=== PATIENT | male | born 1950 | race Caucasian/White ===

== ENCOUNTER 2018-09-01 18:14 | Inpatient (IN) | payer MEDICAID ==
[~2018-09-01] VITALS: Ht 170.2 cm; Wt 91.6 kg
[2018-09-01] MEDS ORDERED: ONDANSETRON HCL 4MG/2ML INJ IV STA (18:43)
[2018-09-01] MEDS ORDERED: SODIUM CHLORIDE 0.9% 1,000 ML IV ONE (18:43)
[2018-09-01] MEDS ORDERED: ASPIRIN 81MG TABLET PO ONE (18:45)
[2018-09-01 20:22] LABS: BASOPHILS % 0.7 % (0.0-2.0); EOSINOPHILS % 3.2 % (0.0-5.0); HEMATOCRIT. 38.1 % (42.0-52.0); HEMOGLOBIN. 12.3 g/dL (14.0-18.0); LYMPHOCYTES % 13.9 % (20.0-50.0); MEAN CORPUSCULAR HEMOGLOBIN 29.4 pg (28.0-32.0); MEAN CORPUSCULAR VOLUME 91.2 fL (80.0-94.0); MEAN PLATELET VOLUME 9.1 fl (7.4-10.4); MONOCYTES % 5.3 % (2.0-8.0); NEUTROPHILS % 76.9 % (40.0-76.0); PLATELET 319 x1000/uL (130-400); RED BLOOD CELL COUNT 4.18 mill/uL (4.7-6.1); RED CELL DISTRIBUTION WIDTH 18.2 % (11.6-14.6)
[2018-09-01 20:26] LABS: CHLORIDE 103 mEq/L (98-107)
[2018-09-01 20:29] LABS: INR 1.4; PARTIAL THROMBOPLASTIN TIME 28.2 sec (23.4-31.0); PROTHROMBIN TIME 13.6 sec (9.1-11.1)
[2018-09-01] MEDS ORDERED: FUROSEMIDE 40MG/4ML VIAL IVP NR (20:45)
[2018-09-01] MEDS ORDERED: LABETALOL HCL 20MG/4ML CARPUJECT IV NR (20:45)
[2018-09-01] MEDS ORDERED: ENOXAPARIN 40MG/0.4ML SYR SUBCUT SCH (21:30)
[2018-09-01] MEDS ORDERED: MORPHINE SULFATE 4 MG/ML CPJ (NOT FOR IM USE) IV PRN (21:30)
[2018-09-01 23:35] VITALS: BP 163/100
[2018-09-01 23:37] LABS: CREATINE KINASE 52 IU/L (39-308)
[2018-09-01 23:38] LABS: CREATINE KINASE MB FRACTION < 1.0 ng/mL (0.5-3.6)
[2018-09-01 23:55] VITALS: BP 163/100
[2018-09-01] MEDS ORDERED: ASPI-1159 MT (23:55)
[2018-09-01] MEDS ORDERED: SPIR25TA6 PO (23:55)
[2018-09-01] MEDS ORDERED: FURO40TA5 PO (23:55)
[2018-09-01] MEDS ORDERED: BENA40TA9 MT (23:55)
[2018-09-01] MEDS ORDERED: AMLO10TA80 PO (23:55)
[2018-09-01] MEDS ORDERED: CARV12.545 PO (23:55)
[2018-09-02] MEDS ORDERED: LISINOPRIL 20MG TABLET PO SCH (07:23)
[2018-09-02 08:00] VITALS: BP 183/120
[2018-09-02] MEDS ORDERED: CLONIDINE 0.1MG TABLET PO PRN (08:00)
[2018-09-02] MEDS: SPIRONOLACTONE 25MG TABLET PO SCH (08:48)
[2018-09-02] MEDS: ASPIRIN 81MG TABLET PO SCH (08:48)
[2018-09-02] MEDS: CARVEDILOL 12.5MG TABLET PO SCH (08:48)
[2018-09-02] MEDS: THIAMINE HCL 100MG TABLET PO SCH (08:48)
[2018-09-02] MEDS: ENOXAPARIN 30MG/0.3ML SYR SUBCUT SCH ×2 (08:49→20:08)
[2018-09-02] MEDS ORDERED: MEDICATION NOT ON FORMULARY EA (Aspirin (Aspirin Low Dose) 1 TAB) MT SCH (09:00)
[2018-09-02] MEDS ORDERED: MEDICATION NOT ON FORMULARY EA (Furosemide 40 MG) PO SCH (09:00)
[2018-09-02] MEDS ORDERED: MEDICATION NOT ON FORMULARY EA (Benazepril Hcl 1 TAB) MT SCH (09:00)
[2018-09-02] MEDS ORDERED: FUROSEMIDE 100MG/10ML VIAL IV SCH (09:00)
[2018-09-02] MEDS ORDERED: ASPIRIN 81MG EC TABLET PO SCH (09:00)
[2018-09-02] MEDS ORDERED: AMLODIPINE 10MG TABLET PO SCH (09:00)
[2018-09-02] MEDS ORDERED: FUROSEMIDE 40MG TABLET PO SCH (09:00)
[2018-09-02] MEDS ORDERED: MEDICATION NOT ON FORMULARY EA (Spironolactone 25 MG) PO SCH (09:00)
[2018-09-02] MEDS: BENAZEPRIL 10MG TABLET PO SCH (10:21)
[2018-09-02] MEDS ORDERED: CLONIDINE 0.2MG TABLET PO PRN (11:30)
[2018-09-02 11:49] LABS: BASOPHILS % 0.8 % (0.0-2.0); EOSINOPHILS % 2.4 % (0.0-5.0); HEMATOCRIT. 37.3 % (42.0-52.0); HEMOGLOBIN. 12.1 g/dL (14.0-18.0); LYMPHOCYTES % 14.1 % (20.0-50.0); MEAN CORPUSCULAR HEMOGLOBIN 29.4 pg (28.0-32.0); MEAN CORPUSCULAR VOLUME 90.9 fL (80.0-94.0); MEAN PLATELET VOLUME 8.7 fl (7.4-10.4); MONOCYTES % 7.6 % (2.0-8.0); NEUTROPHILS % 75.1 % (40.0-76.0); PLATELET 271 x1000/uL (130-400); RED BLOOD CELL COUNT 4.11 mill/uL (4.7-6.1); RED CELL DISTRIBUTION WIDTH 17.9 % (11.6-14.6)
[2018-09-02 11:53] LABS: CHLORIDE 103 mEq/L (98-107)
[2018-09-02 12:01] LABS: CREATINE KINASE 41 IU/L (39-308)
[2018-09-02 12:03] LABS: CREATINE KINASE MB FRACTION 1.2 ng/mL (0.5-3.6)
[2018-09-02 12:17] VITALS: BP 112/76
[2018-09-02] MEDS: FUROSEMIDE 40MG/4ML VIAL IVP SCH ×2 (13:21→18:18)
[2018-09-02 16:00] VITALS: BP 124/74
[2018-09-02] MEDS: HYDROCODONE/APAP 7.5/325MG 1 TAB TABLET PO PRN (18:18)
[2018-09-02 20:00] VITALS: BP 135/81
[2018-09-02 20:10] LABS: CLARITY URINE CLEAR (CLEAR); COLOR URINE YELLOW (YELLOW); KETONES URINE NEGATIVE (NEGATIVE); LEUKOCYTE ESTERASE URINE NEGATIVE (NEGATIVE); NITRITE URINE NEGATIVE (NEGATIVE); OCCULT BLOOD URINE TRACE (NEGATIVE); PROTEIN URINE NEGATIVE (NEGATIVE); SPECIFIC GRAVITY URINE 1.007 (1.005-1.030)
[2018-09-02 20:20] LABS: *AMPHETAMINES SCREEN URINE NEGATIVE (NEGATIVE)
[2018-09-02 20:21] LABS: *BARBITURATES SCREEN URINE NEGATIVE (NEGATIVE); *BENZODIAZEPINES SCREEN URINE NEGATIVE (NEGATIVE); *COCAINE SCREEN URINE NEGATIVE (NEGATIVE); CANNABINOID URINE SCREEN NEGATIVE (NEGATIVE); METHADONE URINE SCREEN NEGATIVE (NEGATIVE); OPIATES URINE SCREEN NEGATIVE (NEGATIVE)
[2018-09-02 20:22] LABS: PHENCYCLIDINE URINE SCREEN NEGATIVE (NEGATIVE)
[2018-09-03] VITALS: BP 145/91
[2018-09-03 04:00] VITALS: BP 156/86
[2018-09-03 06:57] LABS: BASOPHILS % 0.9 % (0.0-2.0); HEMATOCRIT. 36.1 % (42.0-52.0); HEMOGLOBIN. 11.5 g/dL (14.0-18.0); LYMPHOCYTES % 18.6 % (20.0-50.0); MEAN CORPUSCULAR HEMOGLOBIN 29.1 pg (28.0-32.0); MEAN CORPUSCULAR VOLUME 91.6 fL (80.0-94.0); MEAN PLATELET VOLUME 8.8 fl (7.4-10.4); MONOCYTES % 8.7 % (2.0-8.0); NEUTROPHILS % 62.8 % (40.0-76.0); PLATELET 272 x1000/uL (130-400); RED BLOOD CELL COUNT 3.95 mill/uL (4.7-6.1); RED CELL DISTRIBUTION WIDTH 17.7 % (11.6-14.6)
[2018-09-03] MEDS: FUROSEMIDE 40MG/4ML VIAL IVP SCH ×2 (07:00→17:02)
[2018-09-03 07:13] LABS: PHOSPHORUS 3.2 mg/dL (2.5-4.9)
[2018-09-03 08:00] VITALS: BP 129/87
[2018-09-03] MEDS: ASPIRIN 81MG TABLET PO SCH (08:45)
[2018-09-03] MEDS: THIAMINE HCL 100MG TABLET PO SCH (08:45)
[2018-09-03] MEDS: BENAZEPRIL 10MG TABLET PO SCH (08:46)
[2018-09-03] MEDS: SPIRONOLACTONE 25MG TABLET PO SCH (08:46)
[2018-09-03] MEDS: CARVEDILOL 12.5MG TABLET PO SCH ×2 (08:46→17:02)
[2018-09-03] MEDS: ENOXAPARIN 30MG/0.3ML SYR SUBCUT SCH ×2 (08:47→20:02)
[2018-09-03] MEDS: POTASSIUM CHLORIDE 20MEQ TABLET SR PO SCH (10:19)
[2018-09-03 12:20] VITALS: BP 139/80
[2018-09-03 13:59] LABS: HEPATITIS B SURFACE ANTIGEN NEGATIVE
[2018-09-03 14:29] LABS: HEPATITIS A AB IGM NEGATIVE (NEGATIVE)
[2018-09-03 16:00] VITALS: BP 126/74
[2018-09-03 20:00] VITALS: BP 137/86
[2018-09-03] MEDS: HYDROCODONE/APAP 7.5/325MG 1 TAB TABLET PO PRN (20:03)
[2018-09-03] MEDS ORDERED: FAMOTIDINE 20MG TABLET PO SCH (21:00)
[2018-09-04] VITALS: BP 126/75
[2018-09-04 04:00] VITALS: BP 150/87
[2018-09-04] MEDS: FUROSEMIDE 40MG/4ML VIAL IVP SCH (06:37)
[2018-09-04 06:39] LABS: BASOPHILS % 1.1 % (0.0-2.0); EOSINOPHILS % 9.3 % (0.0-5.0); HEMATOCRIT. 36.6 % (42.0-52.0); HEMOGLOBIN. 11.9 g/dL (14.0-18.0); MEAN CORPUSCULAR HEMOGLOBIN 29.4 pg (28.0-32.0); MEAN CORPUSCULAR VOLUME 90.7 fL (80.0-94.0); MEAN PLATELET VOLUME 8.9 fl (7.4-10.4); MONOCYTES % 8.1 % (2.0-8.0); NEUTROPHILS % 59.5 % (40.0-76.0); PLATELET 274 x1000/uL (130-400); RED BLOOD CELL COUNT 4.04 mill/uL (4.7-6.1); RED CELL DISTRIBUTION WIDTH 18.7 % (11.6-14.6)
[2018-09-04 06:42] LABS: CHLORIDE 104 mEq/L (98-107)
[2018-09-04 07:59] VITALS: BP 135/91
[2018-09-04] MEDS: SPIRONOLACTONE 25MG TABLET PO SCH (08:37)
[2018-09-04] MEDS: ENOXAPARIN 30MG/0.3ML SYR SUBCUT SCH (08:37)
[2018-09-04] MEDS: THIAMINE HCL 100MG TABLET PO SCH (08:37)
[2018-09-04] MEDS: POTASSIUM CHLORIDE 20MEQ TABLET SR PO SCH (08:37)
[2018-09-04] MEDS: CARVEDILOL 12.5MG TABLET PO SCH (08:37)
[2018-09-04] MEDS: ASPIRIN 81MG TABLET PO SCH (08:37)
[2018-09-04] MEDS: BENAZEPRIL 10MG TABLET PO SCH (08:38)
[2018-09-04 12:17] VITALS: BP 161/97
[2018-09-04 14:30] VITALS: BP 161/97
== END 2018-09-04 16:50 | disposition home or self-care (01) | DRG 194 ==
LOC: ER 18:14 → 5WST 21:19 → EDBEDREQTM 21:24 → EDBEDREQSVC 21:24 → EDBEDREQ 21:24 → ENRESERV 21:30
PROVIDERS: ADMIT Internal Medicine Nephrology; ATTEND Internal Medicine Nephrology
DX: I11.0 Hypertensive heart disease with heart failure (principal); I42.0 Dilated cardiomyopathy; I48.91 Unspecified atrial fibrillation; R74.8 Abnormal levels of other serum enzymes; R10.9 Unspecified abdominal pain; E66.9 Obesity, unspecified; I50.43 Acute on chronic combined systolic (congestive) and diastolic (congestive) heart failure; Z95.810 Presence of automatic (implantable) cardiac defibrillator; Z91.14 Patient's other noncompliance with medication regimen; Z68.31 Body mass index [BMI] 31.0-31.9, adult; Z71.3 Dietary counseling and surveillance
CPT/HCPCS: 36415; 71045; 76705; 80048; 80061; 80305; 82550; 82553; 83036; 83605; 83735; 83880; 84100; 84443; 84484; 86705; 86709; 86803; 87340; 93005; 93306; 96374; 96375; 99291; J1650; J1940; J2270; J2405; J3490; J7030